=== PATIENT | female | born 1950 | race Caucasian/White ===

== ENCOUNTER 2017-12-17 21:30 | Emergency (ER) | payer MEDICARE, OTHER ==
[2017-12-17 23:16] LABS: BASOPHILS 0.3 % (0-2); EOSINOPHILS 2.1 % (0-7); HEMATOCRIT 43.6 % (36.0-48.0); HEMOGLOBIN 13.9 g/dL (12-16); IMMATURE GRANULOCYTES 0.2 % (0-5); LYMPHOCYTES 19.9 % (15-50); MCH 27.9 pg (26.0-34.0); MCHC 31.9 g/dL (31.0-37.0); MCV 87.4 fL (80.0-100.0); MEAN PLATELET VOLUME 10.7 fL (7.4-10.4); MONOCYTES 8.8 % (2-11); NEUTROPHILS 68.7 % (40-80); PLATELET COUNT 252 10x3/uL (130-400); RBC 4.99 10x6/uL (4.00-5.40); RDW 14.4 % (11.5-14.5); WBC 11.8 10x3/uL (4.8-10.8)
[2017-12-17 23:20] LABS: ALBUMIN 3.1 g/dL (3.4-5.0); ALKALINE PHOSPHATASE 116 U/L (46-116); ALT (SGPT) 22 U/L (10-68); BILIRUBIN - TOTAL 0.27 mg/dL (0.2-1.3); CALC OSMOLALITY 281 mosm/kg (275-300); CALCIUM 8.6 mg/dL (8.5-10.1); CARBON DIOXIDE 29.9 mmol/L (21.0-32.0); CHLORIDE - SERUM 102 mmol/L (98-107); CREATININE - SERUM 0.7 mg/dL (0.6-1.3); GLUCOSE 159 mg/dL (74-106); POTASSIUM - SERUM 3.6 mmol/L (3.5-5.1); PROTEIN - SERUM 8.2 g/dL (6.4-8.2); SODIUM 140 mmol/L (136-145); UREA NITROGEN 13 mg/dL (7-18); eGFR NON AFRICAN AMERICAN 89 mL/min (90-120)
[2017-12-17 23:23] LABS: TROPONIN-I < 0.017 ng/mL (0.000-0.060)
== END 2017-12-17 23:30 | disposition home or self-care (01) ==
LOC: D.ER 21:30
PROVIDERS: Emergency Medicine; Physician Assistant
DX: M54.12 Radiculopathy, cervical region (principal); R06.02 Shortness of breath; R00.0 Tachycardia, unspecified; I45.10 Unspecified right bundle-branch block

== ENCOUNTER 2018-09-05 07:35 | Outpatient (CLI) | payer MEDICARE, OTHER ==
[~2018-09-05] VITALS: Ht 162.6 cm; Wt 115.0 kg
--- NOTE | ~2018-09-05 | DS ---
PATIENT:ARMAND MARCIAL :54 MEDICAL RECORD: [id number] DISCHARGE SUMMARY ADMISSION DATE: 09/05/18 DISCHARGE DATE: 09/06/18 DATE OF DISCHARGE: 09/06/2018 DATE OF SERVICE: 09/06/2018 DIAGNOSES: 1. Unstable angina. 2. Coronary artery disease. 3. Percutaneous transluminal coronary angioplasty and stent of the left circumflex and right coronary artery this admission. HOSPITAL COURSE: Ms. Marcial presents with anginal symptomatology, found to have critical disease of the left circumflex and RCA, underwent successful PTCA and stent of both territories, was discharged home with the addition of aspirin and Plavix to her medical regimen. Follow up with [facility] in 1 month. TRANSINT:[id number] Voice Confirmation ID: [id number] DOCUMENT ID: [id number] HEMANTH TSANG MD at 1914 CC: [id number] DICTATION DATE: 09/06/18 1043 GAME PRODUCER: 09/06/18 2255 DEP CLI 09/06/18 [id number] [place] [address]
--- NOTE | ~2018-09-05 | OP ---
PATIENT NAME: ARMAND MARCIAL MEDICAL RECORD: [id number] :54 LOCATION:D.CAT ADMISSION DATE: SURGEON: HEMANTH TSANG MD DATE OF OPERATION: 09/05/2018 PROCEDURES: 1. PTCA stent LAD. 2. PTCA stent left circumflex. 3. Intravascular ultrasound of the LAD. 4. Left heart catheterization. 5. Selective coronary angiography. 6. Left ventriculogram. INDICATION: Angina and coronary artery disease. PROCEDURE IN DETAIL: After informed consent was obtained and after a detailed description of risks, benefits as well as alternative therapies, the patient elected to proceed with angiogram and angioplasty. The right radial area was prepped and draped in normal sterile fashion. Right radial artery was cannulated via modified Seldinger technique with placement of 6-Hebrew sheath. All catheters exchanged through this sheath. FINDINGS: Left ventriculogram was performed in standard 30-degree OCASIO view, reveals good cardiac wall motion throughout all segments. Overall ejection fraction estimated 60%. SELECTIVE CORONARY ANGIOGRAPHY: 1. Left main is with no significant angiographic disease. 2. Left anterior descending has a calcified hazy stenosis proximally. The intravascular ultrasound confirms it at 70%. 3. The left circumflex has an 80% to 90% stenosis in the mid vessel. 4. Right coronary artery has 70% to 80% at the ostium with pressure damping of the catheter. PTCA STENT OF THE LAD AND CIRCUMFLEX: The LAD was addressed with a 3.5 x 26 mm Feliz. Circumflex with a 3.5 x 15 mm [place]. Result was 0% residual. IMPRESSION: Successful percutaneous transluminal coronary angioplasty stent of left anterior descending and circumflex, both going from 70% to 90% initial stenosis to 0% residual. TRANSINT:[id number] Voice Confirmation ID: [id number] DOCUMENT ID: [id number] HEMANTH TSANG MD at 0264 CC: [id number] DICTATION DATE: 09/05/18908 SCENARIO WRITER: 09/05/18 1145 DEP CLI 09/06/18 [facility] [address] [place] [address]
--- NOTE | ~2018-09-05 | HEMODYNAMI ---
PATIENT:ARMAND MARCIAL MEDICAL RECORD: [id number] : 54 LOCATION:D.CAT ADMISSION DATE: 09/05/18 Generatedon:09/05/20189:14 Patient name: ARMAND MARCIAL Patient #: [id number] SSN: : Date of study: 09/05/2018 Page: Of Hemodynamic Procedure Report Patient Data Patient Demographics Procedure consent was obtained First Name: ARMAND Gender: Female Last Name: : 1950 Patient #: [id number] Age: 68 year(s) Race: Unknown Additional ID: [id number] Contact details Address: [address] [place] [address] State: [place] City: [facility] Zip code: [address] Past Medical History Allergies Allergen Reaction Date Comments Reported Other allergy 09/05/2018 AZITHROMYCIIN, PCN Admission Admission Data Admission Date: 09/05/2018 Admission Time: 7:35 Height (in.): 64 BSA: 2.16 (m2) Height (cm.): 162.56 BMI: 43.43 (kg/m2) Weight (lbs.): 253 Weight (kg.): 114.76 Procedure Procedure Types Cath Procedure Diagnostic Procedure LHC LH w/Coronaries FFR/IVUS Intra-Coronary IVUS Initial Sedation Charges Moderate Sedation up to 15 minutes PCI Procedure Coronary Stent Coronary Stent Initial x2 Procedure Description Procedure Date Procedure Date: 09/05/2018 Procedure Start Time: 8:47 Procedure End Time: 9:10 Procedure Staff Name Function Carlin Hartmann MD Performing Physician Ivette Velazquez RT Scrub Nelli Breen RN Nurse Karley Donohue RT Monitor Procedure Data Cath Procedure Fluoroscopy Diagnostic fluoroscopy Total fluoroscopy Time: 6 time: 6 min min Diagnostic fluoroscopy Total fluoroscopy dose: dose: 1255 mGy 1255 mGy Contrast Material Contrast Material Type Amount (ml) Isovue 300 119 Entry Location Entry Primary Successful Side Size Upsize Upsize Entry Closure Abreu ccessful Closure Location (Fr) 1 (Fr) 2 (Fr) Remarks Device Remarks Radial Right 6 Fr Mechanical artery Short Compression Estimated blood loss: 10 ml Diagnostic catheters Device Type Used For End Catheter Placement DIAGNOSTIC [place] 110cm 5 LV Angiography Fr catheter ([id number]) DIAGNOSTIC [place] 110cm 5 Left Coronary Fr catheter ([id number]) Angiography DIAGNOSTIC [place] 110cm 5 Right Coronary Fr catheter ([id number]) Angiography Procedure Complications No complications Procedure Medications Medication Administration Route Dosage 0.9% NaCl I.V. 100 ml/hr Oxygen etCO2 Nasal cannula 2 l/min Lidocaine 2% added to field 20 Heparin Flush Bag added to field 1 bags (1000units/500ml NS) Versed I.V. 2 mg Fentanyl I.V. 50 mcg Radial Cocktail added to field 1 syringe (Verapomil 2mg/Nitro 400mcg/Heparin 1500units) Heparin Bolus I.V. 4000 units Integrilin (Bolus I.V. 10 ml 2mg/ml) Versed I.V. 2 mg Fentanyl I.V. 50 mcg Plavix P.O. 600 mg Hemodynamics Rest BSA: 2.16 (m2) O2 Consumption: Estimated: 215.58 (ml/min) O2 Consumption indexed : Estimated:99.81 (ml/min/m) Heart Rate: 88 (bpm) Snapshots Pre Cath Intra NCS Post Cath Vital Signs Time Heart Resp SPO2 etCO2 NIBP (mmHg) Rhythm Pain Sedation Rate (ipm) (%) (mmHg) Status Level (bpm) 8:39:57 90 18 98 20 161/93(127) NSR 0 (11) 10(A) , No pain 8:44:50 87 13 97 44.6 163/90(130) NSR 0 (11) 10(A) , No pain 8:49:41 92 12 96 22 151/89(119) NSR 0 (11) 9(A) , No pain 8:55:53 103 14 97 12.8 132/74(107) NSR 0 (11) 9(A) , No pain 9:00:30 102 12 92 36.3 136/77(104) NSR 0 (11) 10(A) , No pain 9:05:13 101 12 92 31.7 142/80(113) NSR 0 (11) 10(A) , No pain 9:10:05 102 16 96 35.5 157/79(120) NSR 0 (11) 10(A) , No pain Medications Time Medication Route Dose Verified Delivered Reason Note s Effectiveness by by 8:44:30 0.9% NaCl I.V. 100 Carlin Nelli used for ml/hr Mary Kate Breen veneer stock grader 8:44:37 Oxygen etCO2 2 l/min Carlin Nelli used for Nasal Mary Kate Breen procedure cannula RN 8:44:43 Lidocaine 2% added 20ml Carlin Carlin for local to vial Mary Kate Hartmann MD anesthetic field 8:44:48 Heparin Flush added 1 bags Carlin Carlin used for Bag to Mary Kate Hartmann MD procedure (1000units/500ml field NS) 8:46:23 Versed I.V. 2 mg Carlin Nelli for sedation Mray Kate Breen RN 8:46:33 Fentanyl I.V. 50 mcg Carlin Nelli for sedation Mary Kate Breen RN 8:50:54 Radial Cocktail added 1 Carlin Carlin used for (Verapomil to syringe Mary Kate Hartmann MD procedure 2mg/Nitro field 400mcg/Heparin 1500units) 8:53:40 Heparin Bolus I.V. 4000 Carlin Nelli for veri fied units Mary Kate Breen anticoagulation with Dr. JERRI Cochran 8:55:27 Integrilin I.V. 10 ml Carlin Nelli for (Bolus 2mg/ml) Mary Kate Breen anticoagulation RN 8:55:43 Versed I.V. 2 mg Carlin Nelli for sedation Mary Kate Breen RN 9:00:57 Fentanyl I.V. 50 mcg Carlin Nelli for sedation Mary Kate Breen RN 9:13:39 Plavix P.O. 600 mg Carlin Nelli for Mary Kate Breen antiplatelet RN therapy Procedure Log Time Note 8:15:48 Signed procedure consent form obtained from patient. 8:15:50 Time tracking: Regular hours (M-F 7:00 - 5:00) 8:15:54 Plan of Care:Hemodynamics will remain stable., Cardiac rhythm will remain stable., Comfort level will be maintained., Respiratory function will remain adequate., Patient/ family verbilizes understanding of procedure., Procedure tolerated without complication., Recovers from procedure without complications.. 8:16:15 Patient Height : 64 inches 8:16:21 Patient Weight : 253 lbs 8:16:35 H&P Date Dictated: 08/08/2018 Within 30 days and on chart., H&P Addendum completed by physician on day of procedure. (MUST COMPLETE FOR ALL OUTPATIENTS). 8:17:03 Patient allergic to Other allergyAZITHROMYCIIN, PCN 8:20:24 Nelli Breen RN sent for patient. Start room use. 8:31:22 Patient received from Pre/Post Procedure Room to CCL 1 Alert and oriented. Tansferred to table in Supine position. 8:31:23 Warm blankets applied, and susie hugger turned on for patient comfort. 8:31:24 Correct patient and procedure confirmed by team. 8:31:25 ECG and BP/O2 sat monitors applied to patient. 8:38:10 Vital chart was started 8:43:39 Baseline sample Acquired. 8:43:44 Rhythm: sinus rhythm 8:43:45 Full Disclosure recording started 8:43:47 Pre-procedure instructions explained to patient. 8:43:47 Pre-op teaching completed and patient verbalized understanding. 8:43:49 Family in patients room. 8:43:50 Patient NPO since Midnight. 8:43:52 Is the patient allergic to Iodine/contrast media? No. 8:44:22 Is patient on blood thinner?No 8:44:23 Patient diabetic? No. 8:44:26 Previous problem with sedation/anesthesia? No ? 8:44:27 Snore? Yes 8:44:27 Sleep apnea? No 8:44:28 Deviated septum? No 8:44:29 Opens mouth fully? Yes 8:44:30 0.9% NaCl 100 ml/hr I.V. was administered by Nelli Breen RN; used for procedure; 8:44:30 Sticks out tongue? Yes 8:44:32 Airway obstruction? No ? 8:44:37 Oxygen 2 l/min etCO2 Nasal cannula was administered by Nelli Breen RN; used for procedure; 8:44:37 Dentures? Yes IN 8:44:41 Pre procedure: right dorsailis pedis pulse 1+ Palpable, but thready & weak; easily obliterated 8:44:43 Lidocaine 2% 20ml vial added to field was administered by Carlin Hartmann MD; for local anesthetic; 8:44:43 Modified Tan's test Ulnar < 7 seconds 8:44:45 Patient pain scale 0/10 ?. 8:44:48 Heparin Flush Bag (1000units/500ml NS) 1 bags added to field was administered by Carlin Hartmann MD; used for procedure; 8:44:52 IV patent on arrival in left forearm with 0.9% NaCl at [facility]. 8:44:54 Lab results completed and on chart. 8:44:57 Right Radial & Left Groin area was prepped with chlora-prep and draped in sterile fashion 8:44:58 Alarms reviewed by R. N. 8:44:58 Sharps counted by scrub and verified by R.N. 8:45:01 Use device set Radial Dx or PCI 8:45:02 ACIST Syringe (71293) opened to sterile field. 8:45:03 Medline Cath Pack ([id number]) opened to sterile field. 8:45:03 Bag Decanter (2002S) opened to sterile field. 8:45:03 DIAGNOSTIC WIRE .035 260cm J wire (323943) opened to sterile field. 8:45:04 ACIST Hand Control (91715) opened to sterile field. 8:45:04 ACIST Manifold (42891) opened to sterile field. 8:45:05 Tegaderm 4 x 4 (1626W) opened to sterile field. 8:45:05 MBrace Wrist Support ([id number]) opened to sterile field. 8:45:06 SHEATH 6Fr Prelude Radial ([id number]) opened to sterile field. 8:45:12 Final Timeout: patient, procedure, and site verified with staff and physician. All members of the team are in agreement. 8:45:16 Right Radial & Left Groin site verified by team. 8:45:18 Physical assessment completed. ASA score P 2 - A patient with mild systemic disease as per Carlin Hartmann MD. 8:45:21 Sedation plan: IV Moderate Sedation Medication:Versed, Fentanyl 8:46:23 Versed 2 mg I.V. was administered by Nelli Breen RN; for sedation; 8:46:33 Fentanyl 50 mcg I.V. was administered by Nelli Breen RN; for sedation; 8:47:25 Procedure started. 8:47:29 Local anesthetic to right radial artery with Lidocaine 2% by Carlin Hartmann MD.INITIAL ACCESS ONLY 8:48:08 A 6 Fr Short sheath was inserted into the Right Radial artery 8:50:17 A DIAGNOSTIC [place] 110cm 5 Fr catheter (178221) was advanced over the wire and used for LV Angiography. 8:50:37 LV gram done using OCASIO 8:50:45 Injector settings: Ml/sec: 5, Volume: 15, 8:50:51 EF : 60 % 8:50:54 Radial Cocktail (Verapomil 2mg/Nitro 400mcg/Heparin 1500units) 1 syringe added to field was administered by Carlin Hartmann MD; used for procedure; 8:51:01 A DIAGNOSTIC [place] 110cm 5 Fr catheter (929060) was advanced over the wire and used for Left Coronary Angiography. 8:51:55 A DIAGNOSTIC [place] 110cm 5 Fr catheter (970484) was advanced over the wire and used for Right Coronary Angiography. 8:52:16 Catheter removed. 8:53:34 Use device set [facility] PCI 8:53:40 Heparin Bolus 4000 units I.V. was administered by Nelli Breen RN; for anticoagulation; verified with Dr. Hartmnan 8:53:48 INFLATOR Merit BasixCompak (FI2048) opened to sterile field. 8:54:10 6 Fr XB 3.5 guide catheter was inserted over the wire 8:54:18 CHOICE PT ES wire advanced. 8:54:34 [place]agley[place] IVUS Catheter (14733B) opened to sterile field. 8:54:43 CHOICE PT Extra Support 182cm wire ([id number]) opened to sterile field. 8:54:53 GUIDE 6FR XB 3.5 catheter ([id number]) opened to sterile field. 8:55:21 IVUS catheter advanced over wire. 8:55:27 Integrilin (Bolus 2mg/ml) 10 ml I.V. was administered by Nelli Breen RN; for anticoagulation; 8:55:43 Versed 2 mg I.V. was administered by Nelli Breen RN; for sedation; 8:56:07 IVUS pass to LAD lesion performed. 8:57:01 IVUS catheter removed over wire. 9:00:40 Place stent Inflation Number: 1 A HAYDEE RX 3.5 x 26 stent ([id number]) was prepped and advanced across the Prox LAD. The stent was deployed at 17 EITAN for 0:05 (min:sec). 9:00:57 Fentanyl 50 mcg I.V. was administered by Nelli Breen RN; for sedation; 9:01:12 Stent catheter was removed intact over wire. 9:01:36 Wire redirected to CIRC. 9:02:51 Place stent Inflation Number: 1 A HAYDEE RX 3.5 x 15 stent ([id number]) was prepped and advanced across the Mid CX. The stent was deployed at 15 EITAN for 0:06 (min:sec). 9:03:06 Stent catheter was removed intact over wire. 9:03:06 Wire removed. 9:03:07 Guide catheter removed. 9:03:17 Sheath removed intact; hemostasis achieved with Mechanical Compression to the Right Radial artery. 9:03:19 Procedure ended.(Physican Out) 9:04:21 Fluoroscopy time 06.00 minutes. 9:04:25 Fluoroscopy dose: 1255 mGy 9:04:25 Flurop Dose total: 1255 9:04:29 Contrast amount:Isovue 300 119ml. 9:04:31 Sharps counted by scrub and verified by R.N. 9:04:34 TR band inflated with 12cc of air. 9:04:36 Insertion/operative site no bleeding no hematoma. 9:04:43 TR BAND Large ([id number]) opened to sterile field. 9:04:55 Post right radial artery:stable, clean and dry 9:04:56 Post Procedure Pulses reassessed and unchanged 9:04:59 Post-procedure physical assessment completed. ASA score P 2 - A patient with mild systemic disease as per Carlin Hartmann MD. 9:05:01 Post procedure rhythm: unchanged. 9:05:04 Estimated blood loss: 10 ml 9:05:06 Post procedure instruction explained to patient.Patient verbalizes understanding. 9:05:06 Patient needs reinforcement of post procedure teaching. 9:05:32 Procedure type changed to Cath procedure, Diagnostic procedure, LHC, LHC w/Coronaries, FFR/IVUS, Intra-Coronary IVUS Initial, Sedation Charges, Moderate Sedation up to 15 minutes, PCI procedure, Coronary Stent, Coronary Stent Initial x2 9:06:24 Procedure and supply charges have been captured, reviewed, submitted and are correct. 9:06:28 Procedure Complication : No complications 9:06:30 See physician's report for complete and final results. 9:10:19 Vital chart was stopped 9:10:21 Report given to Pre/Post Procedure Room. 9:13:39 Plavix 600 mg P.O. was administered by Nelli Breen RN; for antiplatelet therapy; 9:13:47 Patient transfered to ED with Stretcher. 9:13:52 End room use (Document Last) Intervention Summary Intervention Notes Time ActionType Lesion and Equipment Used Action# Pressure Duration Attributes 9:00:40 Place stent Prox LAD HAYDEE RX 3.5 x 1 17 00:05 26 stent ([id number]) 9:02:51 Place stent Mid CX HAYDEE RX 3.5 x 1 15 00:06 15 stent ([id number]) Device Usage Item Name Manufacture Quantity Catalog Number Hospital Part Current Minimal Lot# / Charge Number Stock Stock Serial# Code ACIST Syringe Acist 1 25855 022849 768484 046259 20 (94225) Medical Systems Inc Medline Cath Medline 1 [id number] 435305 33883 907248 5 Pack ([id number]) Bag Decanter Microtek 1 2001S 571185 63773 815401 5 (2001S) Medical Inc. DIAGNOSTIC WIRE St Aftab 1 526794 936077 682413 469560 30 .035 260cm J wire (113675) ACIST Hand Acist 1 05619 408331 882587 067157 5 Control (20404) Medical Systems Inc ACIST Manifold Acist 1 07590 007163 402088 605282 5 (15582) Medical Systems Inc Tegaderm 4 x 4 3M 1 1626W 172660 304280 707553 5 (1626W) MBrace Wrist Advanced 1 140-0250-00 435238 08940 346682 5 Support Vascular ([id number]) Dynamics SHEATH 6Fr Merit 1 [id number] 392507 244663 299475 5 Prelude Radial Medical ([id number]) DIAGNOSTIC Terumo 1 40-0280 565136 763894 226352 5 [place] 110cm 5 Fr catheter (218095) INFLATOR Merit Merit 1 MX8781 391434 989495 169829 15 BasSmartAsset Medical (UB4071) [place] 1 96325L 194518 830821 095123 8 [place] Eagleye IVUS Catheter (76247E) CHOICE PT Extra [place] 1 [id number] 947995 387747 948568 5 Support 182cm Scientific wire ([id number]) GUIDE 6FR XB Cardinal 1 [id number] 147892 406052 686576 2 3.5 catheter Health (85153360) HAYDEE RX 3.5 x Medtronic 1 [id number] 723124 7262948 454642 5 [id number] 26 stent ([id number]) HAYDEE RX 3.5 x Medtronic 1 [id number] 976303 5846344 368945 5 [id number] 15 stent ([id number]) TR BAND Large Terumo 1 [id number] 489133 230953 454426 40 ([id number]) Signature Audit [place] Stage Time Signature Unsigned Intra-Procedure 09/05/2018 Karley 9:14:06 AM Counts RT(R) Signatures Monitor : Karley Signature : Counts RT Date : Time : [facility] [address] [place] [address]
--- NOTE | ~2018-09-05 | OP ---
PATIENT NAME: ARMAND MARCIAL MEDICAL RECORD: [id number] :54 LOCATION:D.CAT ADMISSION DATE: SURGEON: HEMANTH TSANG MD DATE OF OPERATION: 09/06/2018 PROCEDURES: 1. PTCA stent RCA. 2. Selective coronary angiography. INDICATION: Angina and coronary artery disease. PROCEDURE IN DETAIL: After informed consent was obtained and after detailed description of risks, benefits as well as alternative therapies, the patient elected to proceed with angiogram and angioplasty. The left femoral area was prepped and draped in normal sterile fashion. Left femoral artery was cannulated via modified Seldinger technique with placement of 6-Malay sheath. All catheters exchanged through this sheath. FINDINGS: The right coronary ostium is 80% stenosed. This addressed with a 3.5 x 15 mm Feliz. Result was 0% residual stenosis. OVERALL IMPRESSION: Successful PTCA stent of the RCA ostium going from 80% initial stenosis to 0% residual. TRANSINT:[id number] Voice Confirmation ID: [id number] DOCUMENT ID: [id number] HEMANTH TSANG MD at 1914 CC: [id number] DICTATION DATE: 09/06/18 1044 STYLE ADVISOR: 09/06/18 1228 DEP CLI 09/06/18 [address] [place] [address]
--- NOTE | ~2018-09-05 | HEMODYNAMI ---
PATIENT:ARMAND MARCIAL MEDICAL RECORD: [id number] : 54 LOCATION:[facility] ADMISSION DATE: 09/05/18 Generatedon:09/06/201810:43 Patient name: ARMAND MARCIAL Patient #: [id number] SSN: : Date of study: 09/06/2018 Page: Of Hemodynamic Procedure Report Patient Data Patient Demographics Procedure consent was obtained First Name: ARMAND Gender: Female Last Name: : 1950 Patient #: [id number] Age: 68 year(s) Race: Unknown Additional ID: [id number] Contact details Address: [address] [place] [address] State: [place] City: [facility] [place] [place] Zip code: [address] Past Medical History Allergies Allergen Reaction Date Comments Reported Other allergy 09/05/2018 AZITHROMYCIIN, PCN Admission Admission Data Admission Date: 09/05/2018 Admission Time: 7:35 Room #: [facility]8 Height (in.): 64 BSA: 2.16 (m2) Height (cm.): 162.56 BMI: 43.43 (kg/m2) Weight (lbs.): 253 Weight (kg.): 114.76 Procedure Procedure Types Cath Procedure PCI Procedure Coronary Stent Coronary Stent Initial Procedure Description Procedure Date Procedure Date: 09/06/2018 Procedure Start Time: 10:33 Procedure End Time: 10:42 Procedure Staff Name Function Carlin Hartmann MD Performing Physician Karley Donohue RT Monitor Jalen Catherine RN Nurse Liliya Son RT Scrub Procedure Data Cath Procedure Fluoroscopy Diagnostic fluoroscopy Total fluoroscopy Time: 1.9 time: 1.9 min min Diagnostic fluoroscopy Total fluoroscopy dose: 105 dose: 105 mGy mGy Contrast Material Contrast Material Type Amount (ml) Isovue 300 38 Entry Location Entry Primary Successful Side Size Upsize Upsize Entry Closure Succes sful Closure Location (Fr) 1 (Fr) 2 (Fr) Remarks Device Remarks Femoral Left 6 Fr Exoseal artery Short Estimated blood loss: 10 ml Procedure Complications No complications Procedure Medications Medication Administration Route Dosage Oxygen etCO2 Nasal cannula 2 l/min Heparin Flush Bag added to field 2 bags (1000units/500ml NS) 0.9% NaCl I.V. 100 ml/hr Fentanyl I.V. 50 mcg Versed I.V. 1 mg Fentanyl I.V. 50 mcg Versed I.V. 1 mg Heparin Bolus I.V. 4000 units Fentanyl I.V. 50 mcg Fentanyl I.V. 50 mcg Hemodynamics Rest BSA: 2.16 (m2) O2 Consumption: Estimated: 213.55 (ml/min) O2 Consumption indexed : Estimated:98.87 (ml/min/m) Heart Rate: 85 (bpm) Snapshots Pre Cath Intra NCS Post Cath Vital Signs Time Heart Resp SPO2 etCO2 NIBP (mmHg) Rhythm Pain Sedation Rate (ipm) (%) (mmHg) Status Level (bpm) 10:24:02 94 16 97 0 171/100(138) NSR 0 (11) 10(A) , No pain 10:28:38 91 16 98 0 163/99(120) NSR 0 (11) 10(A) , No pain 10:33:10 103 17 97 1.5 150/82(122) NSR 0 (11) 10(A) , No pain 10:37:41 102 16 97 0.7 163/87(138) NSR 0 (11) 10(A) , No pain 10:42:17 96 17 97 0 165/89(130) NSR 0 (11) 10(A) , No pain Medications Time Medication Route Dose Verified Delivered Reason Notes Effectiveness by by 10:25:56 Oxygen etCO2 2 Carlin Rao Per physician Nasal l/min Mary Kate Catherine RN cannula 10:26:05 Heparin Flush added 2 Carlin Rao used for Bag to bags Mary Kate Catherine RN procedure (1000units/500ml field NS) 10:26:17 0.9% NaCl I.V. 100 Carlin Rao Per physician ml/hr Mary Kate Catherine RN 10:33:26 Fentanyl I.V. 50 Carlin Rao for sedation mcg Mary Kate Catherine RN 10:33:33 Versed I.V. 1 mg Carlin Rao for sedation Mary Kate Catherine RN 10:35:13 Fentanyl I.V. 50 Carlin Rao for sedation mcg Mary Kate Catherine RN 10:35:15 Versed I.V. 1 mg Carlin Rao for sedation Mary Kate Catherine RN 10:35:26 Heparin Bolus I.V. 4000 Carlin Rao for units Mary Kate Catherine RN anticoagulation 10:37:22 Fentanyl I.V. 50 Carlin Rao for sedation mcg Mary Kate Catherine RN 10:37:52 Fentanyl I.V. 50 Carlin Rao for sedation [facility] [place] Kate Catherine RN Procedure Log Time Note 9:58:13 Time tracking: Regular hours (M-F 7:00 - 5:00) 9:58:16 Plan of Care:Hemodynamics will remain stable., Cardiac rhythm will remain stable., Comfort level will be maintained., Respiratory function will remain adequate., Patient/ family verbilizes understanding of procedure., Procedure tolerated without complication., Recovers from procedure without complications.. 9:58:21 Patient Height : 64 inches 9:58:21 Patient Weight : 253 lbs 10:02:11 Karley Counts RT(R) sent for patient. Start room use. 10:18:18 Patient received from Med II to CCL 3 Alert and oriented. Tansferred to table in Supine position. 10:18:19 Warm blankets applied, and susie hugger turned on for patient comfort. 10:18:19 Correct patient and procedure confirmed by team. 10:18:21 Signed procedure consent form obtained from patient. 10:18:23 ECG and BP/O2 sat monitors applied to patient. 10:18:34 Vital chart was started 10:18:37 Rhythm: sinus rhythm 10:20:35 Full Disclosure recording started 10:20:47 H&P Date Dictated: 08/08/2018 Within 30 days and on chart., H&P Addendum completed by physician on day of procedure. (MUST COMPLETE FOR ALL OUTPATIENTS). 10:20:48 Pre-op teaching completed and patient verbalized understanding. 10:20:49 Family in patients room. 10:20:51 Patient NPO since Midnight. 10:21:03 Is the patient allergic to Iodine/contrast media? Yes. 10:21:04 Was the patient premedicated? Yes 10:21:05 Is patient on blood thinner?Yes 10:21:07 ACC The patient was administered the following blood thiners within the last 24 hours: ACCPlavix 10:25:56 Oxygen 2 l/min etCO2 Nasal cannula was administered by Jalen Catherine RN; Per physician; 10:26:05 Heparin Flush Bag (1000units/500ml NS) 2 bags added to field was administered by Jalen Catherine RN; used for procedure; 10:26:17 0.9% NaCl 100 ml/hr I.V. was administered by Jalen Catherine RN; Per physician; 10:27:23 IV LEFT HAND INFILTRATED. 10:27:36 IV started by Jalen Catherine RN inright hand with a 22 gauge IV catheter with 0.9% NaCl at O. 10:28:01 Patient diabetic? No. 10:28:07 Previous problem with sedation/anesthesia? No ? 10:28:11 Snore? Yes 10:28:12 Sleep apnea? No 10:28:13 Deviated septum? No 10:28:14 Opens mouth fully? Yes 10:28:14 Sticks out tongue? Yes 10:28:16 Airway obstruction? No ? 10:28:18 Dentures? No ? 10:28:26 Pre procedure: left dorsailis pedis pulse 2+ Normal; easily identifiable; not easily obliterated 10:28:28 Patient pain scale 0/10 ?. 10:28:33 Lab results completed and on chart. 10:28:43 Left groin area was prepped with chlora-prep and draped in sterile fashion 10:28:44 Alarms reviewed by R. N. 10:28:45 Sharps counted by scrub and verified by R.N. 10:28:54 Baseline sample Acquired. 10:29:11 Use device set CATH PACK 10:29:13 Use device set TAUTH PCI 10:29:15 ACIST Syringe (99907) opened to sterile field. 10:29:15 ACIST Hand Control (50572) opened to sterile field. 10:29:16 ACIST Manifold (59055) opened to sterile field. 10:29:16 Medline Cath Pack ([id number]) opened to sterile field. 10:29:17 Bag Decanter () opened to sterile field. 10:29:17 DIAGNOSTIC WIRE .035 260cm J wire (236318) opened to sterile field. 10:29:18 INFLATOR Merit BasixCompak (RM7538) opened to sterile field. 10:29:20 CHOICE PT Extra Support 182cm wire ([id number]) opened to sterile field. 10:29:22 SHEATH Prelude 6Fr 0.035 (BCF-4A-38-035) opened to sterile field. 10:29:28 Tegaderm 4 x 4 (1626W) opened to sterile field. 10:30:11 Procedure started. 10:31:35 Final Timeout: patient, procedure, and site verified with staff and physician. All members of the team are in agreement. 10:31:37 Left groin site verified by team. 10:31:40 Physical assessment completed. ASA score P 2 - A patient with mild systemic disease as per Carlin Hartmann MD. 10:31:42 Sedation plan: IV Moderate Sedation Medication:Versed, Fentanyl 10:32:25 Zero performed for pressure channel P1 10:33:15 Local anesthetic to left femerol artery with Lidocaine 2% by Carlin Hartmann MD.INITIAL ACCESS ONLY 10:33:26 Fentanyl 50 mcg I.V. was administered by Jalen Catherine RN; for sedation; 10:33:33 Versed 1 mg I.V. was administered by Jalen Catherine RN; for sedation; 10:33:49 A 6 Fr Short sheath was inserted into the Left Femoral artery 10:35:13 Fentanyl 50 mcg I.V. was administered by Jalen Catherine RN; for sedation; 10:35:15 Versed 1 mg I.V. was administered by Jalen Catherine RN; for sedation; 10:35:16 6 Fr 3DRC guide catheter was inserted over the wire 10:35:26 Heparin Bolus 4000 units I.V. was administered by Jalen Catherine RN; for anticoagulation; 10:36:09 CHOICE PT ES wire advanced. 10:37:22 Fentanyl 50 mcg I.V. was administered by Jalen Catherine RN; for sedation; 10:37:51 Place stent Inflation Number: 1 A HAYDEE RX 3.5 x 15 stent ([id number]) was prepped and advanced across the Prox RCA. The stent was deployed at 17 EITAN for 0:09 (min:sec). 10:37:52 Fentanyl 50 mcg I.V. was administered by Jalen Catherine RN; for sedation; 10:38:11 Stent catheter was removed intact over wire. 10:38:12 Wire removed. 10:38:13 Guide catheter removed. 10:38:26 Sheath removed intact; hemostasis achieved with Exoseal to the Left Femoral artery. 10:38:28 Procedure ended.(Physican Out) 10:39:06 Fluoroscopy time 01.90 minutes. 10:39:11 Flurop Dose total: 105 10:39:11 Fluoroscopy dose: 105 mGy 10:39:15 Contrast amount:Isovue 300 38ml. 10:39:16 Sharps counted by scrub and verified by R.N. 10:39:17 Insertion/operative site no bleeding no hematoma. 10:39:25 Post-op/insertion site Left Femoral artery dressed using a 4 x 4 and Tegaderm. 10:39:29 Post left femerol artery:stable, clean and dry 10:39:30 Post Procedure Pulses reassessed and unchanged 10:39:33 Post-procedure physical assessment completed. ASA score P 2 - A patient with mild systemic disease as per Carlin Hartmann MD. 10:39:35 Post procedure rhythm: unchanged. 10:39:50 Estimated blood loss: 10 ml 10:39:52 Post procedure instruction explained to patient.Patient verbalizes understanding. 10:39:52 Patient needs reinforcement of post procedure teaching. 10:40:02 Procedure Complication : No complications 10:40:05 See physician's report for complete and final results. 10:40:56 EXOSEAL 6Fr (EX600) opened to sterile field. 10:42:31 Procedure and supply charges have been captured, reviewed, submitted and are correct. 10:42:38 Vital chart was stopped 10:42:39 Report given to Pre/Post Procedure Room. 10:42:44 Patient transfered to Pre/Post Procedure Room with Stretcher. 10:42:52 Procedure ended. 10:42:52 Full Disclosure recording stopped 10:42:56 End room use (Document Last) Intervention Summary Intervention Notes Time ActionType Lesion and Equipment Used Action# Pressure Duration Attributes 10:37:[address] stent Prox RCA HAYDEE RX 3.5 x 1 17 00:09 15 stent ([id number]) Device Usage Item Name Manufacture Quantity Catalog Number Hospital Part Current Minimal Lot# / Charge Number Stock Stock Serial# Code ACIST Syringe Acist 1 37724 614096 698027 [id number] 20 (43403) [employer] ACIST Hand Acist 1 20298 183578 224104 223163 5 Control (43521) [employer] ACIST Manifold Acist 1 59025 386054 822942 240551 5 (57763) [employer] Medline Cath Medline 1 [id number] 185563 92524 832204 5 Pack ([id number]) Bag Decanter Microtek 1 2002S 484045 94938 804128 5 (2002S) Medical Inc. DIAGNOSTIC WIRE St Aftab 1 957617 447488 639889 958983 30 .035 260cm J wire (769230) INFLATOR Merit Merit 1 [id number] 584268 426439 686383 15 BasixProofpoint Medical (JU6862) CHOICE PT Extra [place] 1 [id number] 075657 786638 351139 5 Support 182cm Scientific wire ([id number]) SHEATH Prelude Merit 1 [id number] 287631 5384565 490728 5 6Fr 0.035 Medical (SUS-7X-82-035) Tegaderm 4 x 4 3M 1 1626W 893837 852817 239593 5 (1626W) HAYDEE RX 3.5 x Medtronic 1 [id number] 296838 1090220 886702 5 [id number] 15 stent ([id number]) EXOSEAL 6Fr Cardinal 1 EX600 464743 266639 387780 10 (EX600) Health Signature Audit [place] Stage Time Signature Unsigned Intra-Procedure 09/06/2018 Karley 10:43:07 AM Counts RT(R) Signatures Monitor : Karley Signature : Counts RT Date : Time : [place] [address] [place] [address]
[2018-09-05 08:01] VITALS: BP 172/77; BMI 43.5
[2018-09-05 08:24] LABS: BASOPHILS 0.3 % (0-2); EOSINOPHILS 1.1 % (0-7); HEMATOCRIT 45.3 % (36.0-48.0); IMMATURE GRANULOCYTES 0.3 % (0-5); LYMPHOCYTES 20.3 % (15-50); MCH 28.7 pg (26.0-34.0); MCHC 33.1 g/dL (31.0-37.0); MCV 86.8 fL (80.0-100.0); MEAN PLATELET VOLUME 10.4 fL (7.4-10.4); MONOCYTES 8.7 % (2-11); NEUTROPHILS 69.3 % (40-80); RBC 5.22 10x6/uL (4.00-5.40); RDW 14.4 % (11.5-14.5)
[2018-09-05 08:41] LABS: CALC OSMOLALITY 281 mosm/kg (275-300); CALCIUM 9.8 mg/dL (8.5-10.1); CHLORIDE - SERUM 101 mmol/L (98-107); CREATININE - SERUM 0.7 mg/dL (0.6-1.3); GLUCOSE 153 mg/dL (74-106); POTASSIUM - SERUM 4.5 mmol/L (3.5-5.1); SODIUM 139 mmol/L (136-145); UREA NITROGEN 14 mg/dL (7-18); eGFR NON AFRICAN AMERICAN 89 mL/min (90-120)
[2018-09-05 08:46] LABS: PLATELET COUNT 308 10x3/uL (130-400)
[2018-09-05 09:46] VITALS: BP 114/94; Ht 162.6 cm; Wt 115.0 kg
[2018-09-05 11:42] VITALS: BP 139/74
[2018-09-05 15:28] VITALS: BP 130/71
[2018-09-05 20:00] VITALS: BP 143/73
[2018-09-06] VITALS: BP 123/61
[2018-09-06 04:00] VITALS: BP 129/68
[2018-09-06 07:44] VITALS: BP 155/85
[2018-09-06] MEDS ORDERED: PLAVIX75 MG PO (11:27)
[2018-09-06] MEDS ORDERED: BAYER CHEWABLE81 MG PO (11:27)
== END 2018-09-06 15:09 ==
LOC: D.CATH 07:35 → D.M2 07:35 → D.CATH 09:30 → D.M2 09:39 → D.SDCHOLD 15:00 → D.M2 15:01 → D.CLR 09-06 10:55 → D.CATH 09-06 15:09
PROVIDERS: Internal Medicine Interventional Cardiology
DX: I25.110 Atherosclerotic heart disease of native coronary artery with unstable angina pectoris (principal); R94.39 Abnormal result of other cardiovascular function study; R07.9 Chest pain, unspecified
CPT/HCPCS: C9600 ×3; 93458; 92978

== ENCOUNTER → 2018-10-03 18:48 | Outpatient (CLI) | payer MEDICARE, OTHER ==
[2018-09-05 09:46] VITALS: BMI 37.0
[~2018-10-03 18:48] MED LIST: BAYER CHEWABLE81 MG PO; PLAVIX75 MG PO
== END | disposition home or self-care (01) ==
LOC: D.MAMMO 10:00
DX: Z12.31 Encounter for screening mammogram for malignant neoplasm of breast (principal)

== ENCOUNTER 2019-03-17 07:03 | Day surgery (SDC) | payer MEDICARE, OTHER ==
[~2019-03-17] VITALS: Ht 162.6 cm; Wt 113.4 kg
[~2019-03-17 07:03] MED LIST changes: +GLUCOPHAGE500 MG PO; +LOPRESSOR25 MG PO; +TYLENOL ARTHRITIS PO
[2019-03-17 07:42] LABS: CALC OSMOLALITY 281 mosm/kg (275-300); CALCIUM 9.7 mg/dL (8.5-10.1); CARBON DIOXIDE 29.5 mmol/L (21.0-32.0); CHLORIDE - SERUM 102 mmol/L (98-107); CREATININE - SERUM 0.7 mg/dL (0.6-1.3); GLUCOSE 144 mg/dL (74-106); POTASSIUM - SERUM 4.6 mmol/L (3.5-5.1); SODIUM 139 mmol/L (136-145); UREA NITROGEN 14 mg/dL (7-18); eGFR NON AFRICAN AMERICAN 89 mL/min (90-120)
[2019-03-17 08:00] VITALS: BP 121/67; Ht 162.6 cm; Wt 113.4 kg
[2019-03-17 08:03] LABS: BASOPHILS 0.3 % (0-2); EOSINOPHILS 2.2 % (0-7); HEMATOCRIT 42.5 % (36.0-48.0); HEMOGLOBIN 14.1 g/dL (12-16); IMMATURE GRANULOCYTES 0.3 % (0-5); LYMPHOCYTES 19.9 % (15-50); MCH 28.7 pg (26.0-34.0); MCHC 33.2 g/dL (31.0-37.0); MCV 86.4 fL (80.0-100.0); MEAN PLATELET VOLUME 10.6 fL (7.4-10.4); MONOCYTES 8.3 % (2-11); PLATELET COUNT 275 10x3/uL (130-400); RBC 4.92 10x6/uL (4.00-5.40); RDW 15.5 % (11.5-14.5); WBC 11.6 10x3/uL (4.8-10.8)
[2019-03-17] MEDS ORDERED: HYDROCODON-ACE1 EA10 PO (10:59)
--- NOTE | 2019-03-17 12:47 | NUR ---
1240 BNC 3L DC'D. PT O2 SAT DROPPED TO 88% IN LESS THAN 2 MINUTES. BNC 3L/MIN PUT BACK ON PT. PT REMAINS SLEEPY BUT AROUSES EASILY TO VERBAL STIMULI.
--- NOTE | 2019-03-17 16:24 | NUR ---
1540 IV DC'D BY ADAM HODGSON RN. CATHETER INTACT. NO BLEEDING AT SITE. BANDAID APPLIED.
--- NOTE | 2019-03-23 16:09 | OP ---
PATIENT NAME: ARMAND MARCIAL MEDICAL RECORD: [id number] :54 LOCATION:[facility] ADMISSION DATE: SURGEON: PARTH ROWELL MD DATE OF OPERATION: 03/17/2019 PREOPERATIVE DIAGNOSES: 1. Gallstones. 2. Morbid obesity with a BMI of 43. 3. Hypertension. 4. Coronary artery disease. 5. Diabetes mellitus. POSTOPERATIVE DIAGNOSES: 1. Gallstones. 2. Morbid obesity with a BMI of 43. 3. Hypertension. 4. Coronary artery disease. 5. Diabetes mellitus. PROCEDURE: Laparoscopic cholecystectomy. SURGEON: Parth Rowell MD REPORT OF PROCEDURE: The patient's abdomen was prepped and draped in a sterile fashion. A cutdown was made on the superior aspect of the umbilicus, 0 Vicryls were placed in the fascia bilaterally and the fascia was incised with a 15-blade. I then bluntly entered the peritoneal cavity and placed a 12-mm Armando port. Under direct visualization, a 5 mm trocar was placed in the epigastrium and 2 more 5-mm trocars were placed in the right subcostal region. The gallbladder was grasped and elevated. It was noted to be distended with small stones present. Due to the amount of distention, we decided to aspirate the gallbladder to remove some of the bile to allow for more easy maneuverability. Once we did this, we were able to manipulate the gallbladder more easily and we were able to dissect out the cystic artery and cystic duct. These structures were clipped proximally and distally and ligated in standard fashion. The gallbladder was then taken off the liver bed using electrocautery and placed into an Endo Catch bag. The liver bed was treated with electrocautery to stop any bleeding that was present. At this point, the ports and insufflation were then removed and the gallbladder was taken out through the umbilicus. The umbilical fascia was closed with interrupted 0 Vicryls times 3. The wounds were then irrigated out with normal saline and infused with 10 mL of 0.25% Marcaine with epinephrine. The skin incisions were all closed with subcutaneous 5-0 Monocryl and dressed appropriately. COMPLICATIONS: None. CONDITION: Stable. ANESTHESIA: General endotracheal and local. BLOOD LOSS: Minimal. TRANSINT:[id number] Voice Confirmation ID: [id number] DOCUMENT ID: [id number] OPERATIVE REPORT [id number] LORD,ARMANDPARTH GIMENEZ MD at 1609 CC: MUKUND SANTORO [id number] DICTATION DATE: 03/17/19 1108 ROPING TENDER: 03/17/19 1143 [facility] 03/17/19 [facility] [address] [place] [address]
== END 2019-03-17 16:00 | disposition home or self-care (01) ==
LOC: D.OPS 07:03 → D.PAN 08:00 → D.OPS 09:30 → D.PAN 09:30 → D.OPS 16:00
PROVIDERS: ATTEND Surgery
DX: K80.10 Calculus of gallbladder with chronic cholecystitis without obstruction (principal); E66.01 Morbid (severe) obesity due to excess calories; Z68.41 Body mass index [BMI] 40.0-44.9, adult; I10 Essential (primary) hypertension; E11.9 Type 2 diabetes mellitus without complications; I25.10 Atherosclerotic heart disease of native coronary artery without angina pectoris; Z01.812 Encounter for preprocedural laboratory examination

== ENCOUNTER → 2019-08-21 10:38 | Outpatient (CLI) | payer MEDICARE, OTHER ==
[2019-03-17 08:00] VITALS: BMI 43.0
[~2019-08-21 10:38] MED LIST changes: +HYDROCODON-ACE1 EA10 PO
--- NOTE | 2019-08-24 13:30 | EC ---
PATIENT:ARMAND MARCIAL DATE OF SERVICE: 08/21/19 SEX: F MEDICAL RECORD: [id number] DATE OF : 54 LOCATION:D[facility] AGE OF PATIENT: 69 ADMISSION DATE: 08/21/19 REFERRING PHYSICIAN: INTERPRETING PHYSICIAN: HEMANTH HARTMANN MD ECHOCARDIOGRAM REPORT ECHO CHARGES 4 ECHO COMPLETE Date: 08/21/19 CLINICAL DIAGNOSIS: CAD/ASSESS EF/VALVES HX CAD/ STENTS/HTN ECHOCARDIOGRAPHIC MEASUREMENTS (adult normal given) AC root (d.<3.7cm) 3.1 cm LV Septum d (<1.2 cm> 1.4 cm Valve Excursion 1.7 cm LV Septum (systole) 1.6 cm Left Atria (s.<4.0cm> 3.3 cm LVPW d(<1.2cm) 1.4 cm RV (d.<2.3cm) 3.4 cm LVPW (sytole) 1.8 cm LV diastole(<5.6CM) 4.6 cm MV E-F(>70mm/sec) cm LV systole 2.6 cm LVOT Diameter 1.8 cm MV exc.(>10mm) 1.1 cm Est.ejection fraction (50-75%) % DOPPLER: LVIT cm/sec A 94.0 cm/sec E 67.0 cm/sec LA cm/sec RVSP 23 mmHg LVOT 122 cm/sec AOP1/2T m/s Asc. Ao 192 cm/sec RVOT 85 cm/sec RA cm/sec PA 110 cm/sec AV Gradient Peak 14.79mmHg AV Mean 8.47 mmHg AV Area 1.7 cm MV Gradient Peak 7.04 mmHg MV Mean 2.94 mmHg MV Area cm COMMENTS: Plaster Molder: 2 JAYESH FLOR Pairing Machine Operator: 1 Dr. Hartmann TAPE# PACS Pericardial Effusion N DATE OF SERVICE: PROCEDURE: Echocardiogram. FINDINGS: 1. Left ventricular chamber size is within normal limits. Left ventricular systolic function is normal. Overall ejection fraction estimated at 55%. 2. Left atrium, right atrium and right ventricular chamber sizes are within normal limits. 3. Valvular structures have normal structure and motion. ECHOCARDIOGRAM REPORT [id number] ARMAND MARCIAL 4. Doppler interrogation reveals mild mitral regurgitation, no other valvular insufficiency or stenosis. Pulmonary systolic pressure is estimated at 23 mmHg. 5. No evidence of pericardial effusion or left ventricular thrombus. TRANSINT:[id number] Voice Confirmation ID: [id number] DOCUMENT ID: [id number] HEMANTH HARTMANN MD at 1330 CC: [id number] DICTATION DATE: 08/22/19 1206 PAD ASSEMBLER: 08/22/19 1316 DEP CLI 08/21/19 [place] [id number] [place] [id number]
== END | disposition home or self-care (01) ==
LOC: D.HCCECHO 09:30 → D.HCCARDIO 09:30 → D.HCCECHO 10:38
PROVIDERS: ATTEND Internal Medicine Interventional Cardiology
DX: I25.10 Atherosclerotic heart disease of native coronary artery without angina pectoris (principal)

== ENCOUNTER → 2019-10-23 20:30 | Outpatient (CLI) | payer MEDICARE, OTHER ==
[2019-03-17 08:00] VITALS: BMI 43.0
== END | disposition home or self-care (01) ==
LOC: D.MAMMO 09:15
PROVIDERS: ATTEND Clinical Nurse Specialist Family Health
DX: Z12.31 Encounter for screening mammogram for malignant neoplasm of breast (principal)